=== PATIENT | male | born 1990 | race Caucasian/White ===

== ENCOUNTER 2016-10-03 16:08 | Emergency (ER) | payer MEDICAID ==
[2016-10-03 16:15] VITALS: RESP 18
--- NOTE | 2016-10-03 17:28 | EDPHY ---
H & P Stated Complaint: Nausea since 09/18/16 after restarting meds;appetite down, urinary problems Time Seen by Provider: 10/03/16 17:15 - Personal History Current Tetanus Diphtheria and Acellular Pertussis (TDAP): Yes - Medical/Surgical History Other PMH: anxiety/depression - Social History Smoking Status: Never smoked Constitutional: Initial Vital Signs Temperature (C) 36.9 C 10/03/16 16:09 Heart Rate 98 10/03/16 16:09 Respiratory Rate 18 10/03/16 16:09 Blood Pressure 129/85 H 10/03/16 16:09 O2 Sat (%) 95 10/03/16 16:09 O2 Delivery Mode Room Air Allergies/Adverse Reactions: No Known Allergies Allergy (Unverified 10/03/16 16:15) Home Medications: Medication Instructions Recorded Escitalopram Oxalate [Lexapro] 10 mg PO 10/03/16 Seratonin 10/03/16 Testosterone IM [Testosterone 0.5 ml 10/03/16 100mg/ml IM inj (*)] buPROPion [Wellbutrin 75mg (*)] 75 mg PO 10/03/16 Medical Decision Making ED Course/Re-evaluation: CHIEF COMPLAINT: Flank pain, difficulty urinating HISTORY OF PRESENT ILLNESS: The patient is a 26 y/o [id number] complaining of flank pain and reduced urinary output for the last month. He has a history of depression and has been off medications due to insurance problems since July. He restarted medications suddenly 5 days ago and developed diarrhea. His psychiatrist advised him to reduce his Lexapro dose and slowly build up to the same dose he was previously on. He reports he has not had a bowel movement since then and has difficulty emptying his bladder. He denies dysuria, urinary urgency, fever, or chills. No previous UTIs. REVIEW OF SYSTEMS: A 10 point review of systems was performed and is negative with the exception of the elements mentioned in the history of present illness. PHYSICAL EXAM: General Appearance: Alert, well hydrated, appropriate, and non-toxic appearing. Head: Atraumatic without scalp tenderness or obvious injury Eyes: Pupils equal, round, reactive to light and accommodation, EOMI, no trauma , no injection. Ears: Clear bilaterally, no perforation, normal landmarks Nose: Atraumatic, no rhinorrhea, clear. Throat: There is no erythema or exudates, no lesions, normal tonsils, mucus membranes moist. Neck: Supple, 2+ carotid upstroke, non-tender, no lymphadenopathy. Respiratory: No retractions, no distress, no wheezes, and no accessory muscle use. Lungs are clear to auscultation bilaterally. Cardiovascular: Regular rate and rhythm, no murmurs, rubs, or gallops. Bilateral carotid, radial, dorsalis pedis, and posterior tibial pulses intact. Good capillary refill all extremities. Gastrointestinal: Abdomen is soft, RLQ and suprapubic tenderness, non-distended , no masses, no rebound, no guarding, no peritoneal signs. Musculoskeletal: Normal active ROM of all extremities, atraumatic. Left CVA tenderness. Neurological: Alert, appropriate, and interactive. The patient has normal DTRs and non-focal cranial nerves, motor, sensory, and cerebellar exam. Skin: No rashes, good turgor, no nodules on palpation. PAST MEDICAL HISTORY: Depression, anxiety. on Lexapro and Wellbutrin PAST SURGICAL HISTORY: Breast removal SOCIAL HISTORY: Mother at bedside DIAGNOSTICS/PROCEDURES/CRITICAL CARE TIME: Study: CT of the Abdomen/Pelvis with IV contrast Indication: Pain Results: CT scan of the abdomen was obtained. The results of the study are negative. The study was read by the radiologist, Dr. Lisa. I viewed the images myself on the PACS system. DIFFERENTIAL DIAGNOSIS: The differential diagnosis for the patient's abdominal pain included but was not limited to ovarian cyst, pelvic inflammatory disease, ovarian torsion, urinary tract infection, ectopic , cholecystitis, and appendicitis. MEDICAL DECISION MAKING: This is a 26 y/o female transitioning to male presenting with left CVA tenderness, RLQ and suprapubic tenderness, and reduced urinary output for the last several days after restarting his Lexapro and Wellbutrin. He also notes he hasn't had a bowel movement since symptoms onset. No history of abdominal surgeries. Plan for IV and labs including CBC, CHEM. UA ordered. Will order imaging based on labwork. Labs are unremarkable. CT abdomen/pelvis ordered. CT is negative for acute process. Patient will be discharged home with referral to PCP for follow up. Strict return precautions given. Patient is comfortable with this plan. - Data Points Laboratory Results: Laboratory Results 10/03/16 17:15 10/03/16 17:15 10/03/16 17:15 WBC 6.06 10^3/uL (3.80-9.50) RBC 5.24 10^6/uL (4.40-6.38) Hgb 15.6 g/dL (13.7-17.5) Hct 45.2 % (40.0-51.0) MCV 86.3 fL (81.5-99.8) MCH 29.8 pg (27.9-34.1) MCHC 34.5 g/dL (32.4-36.7) RDW 11.6 % (11.5-15.2) Plt Count 216 10^3/uL (150-400) MPV 9.1 fL (8.7-11.7) Neut % (Auto) 68.2 % (39.3-74.2) Lymph % (Auto) 21.3 % (15.0-45.0) Bent % (Auto) 8.4 % (4.5-13.0) Eos % (Auto) 1.2 % (0.6-7.6) Baso % (Auto) 0.7 % (0.3-1.7) Nucleat RBC Rel Count 0.0 % (0.0-0.2) Absolute Neuts (auto) 4.14 10^3/uL (1.70-6.50) Absolute Lymphs (auto) 1.29 10^3/uL (1.00-3.00) Absolute Monos (auto) 0.51 10^3/uL (0.30-0.80) Absolute Eos (auto) 0.07 10^3/uL (0.03-0.40) Absolute Basos (auto) 0.04 10^3/uL (0.02-0.10) Absolute Nucleated RBC 0.00 10^3/uL (0-0.01) Immature Gran % 0.2 % (0.0-1.1) Immature Gran # 0.01 10^3/uL (0.00-0.10) Sodium 141 mEq/L (134-144) Potassium 3.9 mEq/L (3.5-5.2) Chloride 103 mEq/L (97-110) Carbon Dioxide 25 mEq/l (22-31) Anion Gap 13 mEq/L (8-16) BUN 7 mg/dL (7-23) Creatinine 0.7 mg/dL (0.7-1.3) Estimated GFR > 60 Glucose 95 mg/dL (70-100) Calcium 9.5 mg/dL (8.5-10.4) Urine Color YELLOW Urine Appearance MODERATELY TURBID Urine pH 6.0 (5.0-7.5) Ur Specific [place] 1.018 (1.002-1.030) Urine Protein NEGATIVE (NEGATIVE) Urine Ketones TRACE H (NEGATIVE) Urine Blood NEGATIVE (NEGATIVE) Urine Nitrate NEGATIVE (NEGATIVE) Urine Bilirubin NEGATIVE (NEGATIVE) Urine Urobilinogen NEGATIVE EU (0.2-1.0) Ur Leukocyte Esterase NEGATIVE (NEGATIVE) Ur Culture Indicated? NOT INDICATED (NI) Urine Glucose NEGATIVE (NEGATIVE) Departure - Departure Disposition: Home, Routine, Self-Care Clinical Impression: Abdominal pain Instructions: Abdominal Pain (ED) Additional Instructions: Follow up with your primary care provider for symptoms not improved in the next 2-3 days. Return to the ED for worsening of symptoms including uncontrollable vomiting, fever, or severe pain. Referrals: Sendy Hartman MD [Medical Doctor] - As per Instructions Report Scribed for: Porter Rubio Report Scribed by: Lauryn Cowart Date of Report: 10/03/16 Time of Report: 17:28
[2016-10-03 17:30] LABS: % IMMATURE GRANULYOCYTES 0.2 % (0.0-1.1); ABSOLUTE IMMATURE GRANULOCYTES 0.01 10^3/uL (0.00-0.10); ADD DIFF? NO; ADD MORPH? NO; ADD SCAN? NO; ATYPICAL LYMPHOCYTE FLAG 0 (0-99); FRAGMENT RBC FLAG 0 (0-99); HEMATOCRIT 45.2 % (40.0-51.0); HEMOGLOBIN 15.6 g/dL (13.7-17.5); LEFT SHIFT FLG 0 (0-99); LIPEMIA HEMOLYSIS FLAG 90 (0-99); MEAN CELL HEMOGLOBIN 29.8 pg (27.9-34.1); MEAN CELL HEMOGLOBIN CONCENTR. 34.5 g/dL (32.4-36.7); MEAN CELL VOLUME 86.3 fL (81.5-99.8); MEAN PLATELET VOLUME 9.1 fL (8.7-11.7); PLATELET CLUMPS FLAG 10 (0-99); PLATELET COUNT 216 10^3/uL (150-400); RED BLOOD CELL COUNT 5.24 10^6/uL (4.40-6.38); RED CELL DISTRIBUTION WIDTH 11.6 % (11.5-15.2)
[2016-10-03 17:37] LABS: COLOR YELLOW; LEUKOCYTE ESTERASE,URINE NEGATIVE (NEGATIVE); NITRITE,URINE NEGATIVE (NEGATIVE)
[2016-10-03 17:46] LABS: ANION GAP 13 mEq/L (8-16); CALCIUM 9.5 mg/dL (8.5-10.4); CARBON DIOXIDE 25 mEq/l (22-31); CHLORIDE 103 mEq/L (97-110); CREATININE 0.7 mg/dL (0.7-1.3); GLOMERULAR FILTRATION RATE > 60; GLUCOSE 95 mg/dL (70-100); POTASSIUM 3.9 mEq/L (3.5-5.2); SODIUM 141 mEq/L (134-144)
[2016-10-03] MEDS ORDERED: IOPAMIDOL (ISOVUE-300) 100 ML BTL IV ONE (18:08)
--- NOTE | 2016-10-03 18:48 | CT ---
CT Scan of the Abdomen and Pelvis (With Contrast) Clinical Indications: Difficulty urinating. Technique: Dilute contrast was given orally prior to scanning. 90 mL of [id number]-[id number] were given intra venously by machine power injection. Multidetector helical CT imaging was performed from the diaphra gm to the symphysis pubis. Dose reduction techniques were utilized. Findings: Abdomen: The lung bases are clear, and there is no significant pleural fluid. The liver is normal. The biliary ducts and gallbladder are unremarkable. The pancreas and spleen are normal. The adrena l glands and kidneys are normal. No adenopathy and no masses are found. No aneurysm of the abdomina l aorta. Pelvis: The urinary bladder is unremarkable. No free fluid in the pelvis. No masses are identified. Bowel loops are normal. Uterine is unremarkable. There is a right ovarian cyst. Left ovary is unrem arkable. Impression: 1. Normal CT of the abdomen and pelvis with contrast. Specifically no evidence to explain patient's d ifficulty urinating and abdominal pain. 2. Benign-appearing right ovarian cyst. Critical results relayed by Dr. Rodríguez Lisa to Dr. Porter Rubio on October 03, 2016, at 1834 hours.
[2016-10-03 19:32] VITALS: BP 125/79; PULSE 74; TEMP 98.2; O2SAT 96
== END 2016-10-03 19:31 | disposition home or self-care (01) ==
DX: R10.31 Right lower quadrant pain (principal); R10.2 Pelvic and perineal pain
CPT/HCPCS: Q9967